=== PATIENT | male | born 1990 | race Caucasian/White ===

== ENCOUNTER 2017-01-04 03:13 | Emergency (ER) | payer OTHER ==
[2017-01-04 03:31] VITALS: BP 142/87; PULSE 115; TEMP 97.9; BMI 21.6
[2017-01-04] MEDS ORDERED: CEPHALEXIN MONOHYDRATE 500 MG CAPSULE (UD) PO ONE (05:05)
[2017-01-04] MEDS ORDERED: DIPHTH,PERTUSS(ACELL),TET 0.5 ML DISP.SYRIN IM ONE (05:05)
--- NOTE | 2017-01-04 05:05 | PDOC ---
History of Present Illness <Jose Garcia - Last Filed: 01/04/17 05:19> - History of Present Illness Initial Comments: 01/04/17 05:06 The patient is a 26 year old male, with no significant past medical history, who presents to the emergency department with a laceration to his left middle finger tonight which he obtained while trying to fix a metal part on the engine of his car. He denies chest pain, shortness of breath, headache and dizziness. Allergies: clindamycin and Sulfa drugs <Wanda Oh - Last Filed: 01/04/17 05:26> - General Chief Complaint: Laceration Stated Complaint: INJURY Past History - Past Medical History Anemia: Yes (ITP) - Psycho/Social/Smoking Cessation Hx Anxiety: Yes Suicidal Ideation: No Smoking Status: Yes Smoking History: Current every day smoker Number of Cigarettes Smoked Daily: 20 Information on smoking cessation initiated: Yes 'Breaking Loose' booklet given: 01/04/17 Hx Alcohol Use: No Substance Use Type: None <Jose Garcia - Last Filed: 01/04/17 05:19> <Wanda Oh - Last Filed: 01/04/17 05:26> - Past Medical History Allergies/Adverse Reactions: Allergies Allergy/AdvReac Type Severity Reaction Status Date / Time clindamycin Allergy Verified 01/04/17 05:04 Sulfa (Sulfonamide Allergy Verified 01/04/17 05:04 Antibiotics) sulfamethoxazole Allergy Verified 01/04/17 05:04 [From Bactrim] trimethoprim [From Bactrim] Allergy Verified 01/04/17 05:04 Home Medications: Ambulatory Orders Hydrocodone/Acetaminophen [[place] 10-325 Tablet] 1 tab PO TID 02/01/14 Cephalexin [Keflex] 500 mg PO QID #28 capsule 01/04/17 Review of Systems - Review of Systems Able to Perform ROS?: Yes Comments:: 01/04/17 05:21 CONSTITUTIONAL: Absent: fever, no chills, no fatigue EYES: Absent: visual changes ENT: Absent: ear pain, no sore throat CARDIOVASCULAR: Absent: chest pain, no palpitations RESPIRATORY: Absent: cough, no SOB GI: Absent: abdominal pain, no nausea, no vomiting, no constipation, no diarrhea GENITOURINARY: Absent: dysuria, no frequency, no hematuria MUSCULOSKELETAL: Absent: back pain, no arthralgia, no myalgia SKIN: (+) laceration to left middle digit. Absent: rash NEURO: Absent: headache <Wanda Oh - Last Filed: 01/04/17 05:26> *Physical Exam - Vital Signs Last Vital Signs Temp Pulse Resp BP Pulse Ox 97.9 F 115 H 18 142/87 100 01/04/17 03:29 01/04/17 03:29 01/04/17 03:29 01/04/17 03:29 01/04/17 03:29 <Jose Garcia - Last Filed: 01/04/17 05:19> - Vital Signs Last Vital Signs Temp Pulse Resp BP Pulse Ox 97.9 F 115 H 18 142/87 100 01/04/17 03:29 01/04/17 03:29 01/04/17 03:29 01/04/17 03:29 01/04/17 03:29 - Physical Exam Comments: 01/04/17 05:22 GENERAL: Well-appearing, well-nourished. No apparent distress. HEENT: Normocephalic, atraumatic. PERRL, EOM intact. CARDIOVASCULAR: Normal S1, S2. Regular rate and rhythm. PULMONARY: Clear to auscultation bilaterally. ABDOMEN: Soft, non-distended, non-tender. EXTREMITIES: Normal ROM in all four extremities. No gross deformities. SKIN: (+) Left middle finger 2.5cm laceration with active bleeding. Warm, dry. No rash NEUROLOGICAL: No focal neurological deficits. <Wanda Oh - Last Filed: 01/04/17 05:26> Procedures - Laceration/Wound Repair Left Distal 3rd digit Finger Wound Length: to 2.5 cm Wound Explored: clean Wound's Depth, Shape: superficial, flap Irrigated w/ Saline: Yes Betadine Prep: Yes Anesthesia: 1% Lidocaine (Digital Block at the base of the finger) Wound Repaired With: Sutures Suture Size/Type: 4:0, nylon Number of Sutures: 4 Sterile Dressing Applied: Yes <Wanda Oh - Last Filed: 01/04/17 05:26> *DC/Admit/Observation/Transfer - Discharge Dispostion Admit: No <Jose Garcia - Last Filed: 01/04/17 05:19> - Attestations Scribe Attestion: 01/04/17 05:26 Documentation prepared by Wanda Oh, acting as medical billing representative for Jose Garcia MD, MD <Wanda Oh - Last Filed: 01/04/17 05:26> Diagnosis at time of Disposition: Finger laceration - Discharge Dispostion Disposition: HOME Condition at time of disposition: Improved - Prescriptions Prescriptions: Cephalexin [Keflex] 500 mg PO QID #28 capsule - Referrals Referrals: Jessica Contreras MD [Primary Care Provider] - - Patient Instructions Printed Discharge Instructions: DI for Laceration Repair -- Finger Additional Instructions: sutures out in 7-10 days
[2017-01-04] MEDS ORDERED: CEPHALEXIN MONOHYDRATE 250 MG CAPSULE (FP) ONE (05:11)
== END 2017-01-04 05:26 | disposition home or self-care (01) ==
LOC: JER 03:13
PROC: 0HQGXZZ Repair Left Hand Skin, External Approach (ICD-10-PCS; principal; 2017-01-04)
PROC: 3E0234Z Introduction of Serum, Toxoid and Vaccine into Muscle, Percutaneous Approach (ICD-10-PCS; 2017-01-04)
DX: S61.213A Laceration without foreign body of left middle finger without damage to nail, initial encounter (principal); W24.1XXA Contact with transmission devices, not elsewhere classified, initial encounter; Y93.89 Activity, other specified; Y92.89 Other specified places as the place of occurrence of the external cause; Y99.8 Other external cause status
CPT/HCPCS: 12002-25; 90471; 90715; 99281-25